=== PATIENT | male | born 1940 | race Caucasian/White ===

== ENCOUNTER 2016-12-30 08:54 | Inpatient (IN) | payer MEDICARE ==
[~2016-12-30] VITALS: Ht 170.2 cm; Wt 64.7 kg
--- NOTE | 2016-12-31 13:43 | NUR ---
1335- PT TAKEN TO OR FOR EGD AND COLONOSCOPY VIA HOSPITAL BED PER OR NURSE. NO S/S OF DISTRESS, NO COMPLAINTS.
[2017-01-03] MEDS ORDERED: PRINIVIL20 MG PO (09:33)
[2017-01-03] MEDS ORDERED: PRAVACHOL20 MG PO (09:33)
[2017-01-03] MEDS ORDERED: MEN'S ONE DAIL1 EACH PO (09:34)
[2017-01-03] MEDS ORDERED: SAW PALMETTO450 MG PO (09:35)
[2017-01-03] MEDS ORDERED: VITAMIN D31000 UNI1 PO (09:35)
[2017-01-03] MEDS ORDERED: FERROUS SULFAT325 MG PO (09:36)
[2017-01-03] MEDS ORDERED: ATIVAN0.5 MG PO ×2 (09:37→09:38)
== END 2017-01-01 11:46 | disposition home or self-care (01) | DRG 376 ==
LOC: LAB 08:54 → MED 11:14
PROVIDERS: ADMIT Internal Medicine
PROC: 30233N1 Transfusion of Nonautologous Red Blood Cells into Peripheral Vein, Percutaneous Approach (ICD-10-PCS; principal; 2016-12-30)
PROC: 0DJ08ZZ Inspection of Upper Intestinal Tract, Via Natural or Artificial Opening Endoscopic (ICD-10-PCS; 2016-12-31)
PROC: 0DBH8ZX Excision of Cecum, Via Natural or Artificial Opening Endoscopic, Diagnostic (ICD-10-PCS; 2016-12-31)
PROC: 30233N1 Transfusion of Nonautologous Red Blood Cells into Peripheral Vein, Percutaneous Approach (ICD-10-PCS; 2016-12-31)
DX: C18.0 Malignant neoplasm of cecum (principal); R01.1 Cardiac murmur, unspecified; D50.0 Iron deficiency anemia secondary to blood loss (chronic); E78.5 Hyperlipidemia, unspecified; E80.4 Gilbert syndrome; K44.9 Diaphragmatic hernia without obstruction or gangrene; K57.30 Diverticulosis of large intestine without perforation or abscess without bleeding; N40.0 Benign prostatic hyperplasia without lower urinary tract symptoms; M19.90 Unspecified osteoarthritis, unspecified site; Z79.899 Other long term (current) drug therapy; Z90.49 Acquired absence of other specified parts of digestive tract; Z80.9 Family history of malignant neoplasm, unspecified; Z83.3 Family history of diabetes mellitus; Z82.49 Family history of ischemic heart disease and other diseases of the circulatory system; I08.3 Combined rheumatic disorders of mitral, aortic and tricuspid valves
CPT/HCPCS: 93306; J2704; P9021; Q9963; Q9967

== ENCOUNTER 2017-01-06 08:48 | Inpatient (IN) | payer MEDICARE ==
[~2017-01-06] VITALS: Ht 170.2 cm; Wt 67.2 kg
[~2017-01-06 08:48] MED LIST: ATIVAN0.5 MG PO; FERROUS SULFAT325 MG PO; MEN'S ONE DAIL1 EACH PO; PRAVACHOL20 MG PO; PRINIVIL20 MG PO; SAW PALMETTO450 MG PO; VITAMIN D31000 UNI1 PO
--- NOTE | 2017-01-06 17:39 | NUR ---
1735-DR. ARMENDARIZ NOTIFIED OF LAB VALUES AND CONDITION. PT C/O NAUSEA. N/O'S FOR PHENERGAN 12.5MG IV. GIVEN AT THIS TIME
--- NOTE | 2017-01-07 10:18 | NUR ---
1000-DR. ARMENDARIZ HAS SEEN AND ASSESSED PT AT THIS TIME. UPDATED ON PT CONDITION. N/O'S TO D/C FC WELL O2. F/C D/C'D AND O2 DISCONTINUED. O2 SATS DROP TO 87-88% R/A WHEN SLEEPING AND 90-92% W/A. ENCOURAGED TO USE IS W/A. PT OBTAINS 500 ON IS. O2 REPLACED AT 2L NC AT THIS TIME WHILE PT NAPPING. SAT 93-94% 2L NC. 1020-MESSAGE LEFT AT MD OFFICE REPORTING DECREASED O2 SAT 1030-MD NOTIFIED OF DECREASED O2 SAT WHILE SLEEPING. ENCOURAGE IS. NO N/O'S
--- NOTE | 2017-01-07 19:58 | NUR ---
1999 PT IS ASKING FOR SLEEPING MEDS. EXPLAINED IT IS TOO EARLY FOR SLEEPING MEDS THAT HE WILL BE AWAKE AT 0300 A.M. BUT HE IS DETERMINED TO HAVE MEDS AT THIS TIME. RESTORIL AND ATIVAN PO GIVEN ORDERED. WILL MONITOR. DENIES PAIN AT THIS TIME.
--- NOTE | 2017-01-08 07:34 | NUR ---
0730 TRANSFERRED TO ROOM 307 VIA BED WITHOUT PROBLEMS. O2 CONT 2 L/M VIA N/C. AFTER REPORT GIVEN TO DAVE SHARMA.
--- NOTE | 2017-01-08 18:06 | NUR ---
1420- PT AMBULATED IN HALLS WITH NURSING STAFF AND WITHOUT DIFFICULTY.
--- NOTE | 2017-01-09 18:04 | NUR ---
AMBULATING IN ROOM AND HALLS TODAY WITH AT SIDE, NO DIFFICULTY.
--- NOTE | 2017-01-10 07:31 | NUR ---
PT GOT SLIGHTLY CONFUSED DURING THE MIDDLE OF THE NIGHT AND REMOVED GOWN AND DRESSING COVERING MIDLINE INCISION. I PLACED A NEW COVADERM ON HIS ABDOMEN TO PROTECT HIS INSICION. THE INCISION WAS PINK, CLOSED AND NO DRAINAGE OR ODOR NOTED.
== END 2017-01-10 17:10 | disposition home or self-care (01) | DRG 331 ==
LOC: SDC 08:48 → ICU 14:01 → MED 01-08 07:33
PROVIDERS: ADMIT Surgery
PROC: 0DTF0ZZ Resection of Right Large Intestine, Open Approach (ICD-10-PCS; principal; 2017-01-06)
DX: C18.0 Malignant neoplasm of cecum (principal); I10 Essential (primary) hypertension; R01.1 Cardiac murmur, unspecified; E80.4 Gilbert syndrome; I08.1 Rheumatic disorders of both mitral and tricuspid valves; Z79.899 Other long term (current) drug therapy; Z82.49 Family history of ischemic heart disease and other diseases of the circulatory system; Z82.5 Family history of asthma and other chronic lower respiratory diseases; Z80.7 Family history of other malignant neoplasms of lymphoid, hematopoietic and related tissues
CPT/HCPCS: J0360; J1885; J1940; J2550; J2704; P9047

== ENCOUNTER 2017-01-12 22:51 | Emergency (ER) | payer MEDICARE | END 2017-01-13 01:05 | disposition home or self-care (01) | LOC: ER 22:51 | DX: N43.3 Hydrocele, unspecified (principal); R60.0 Localized edema; I10 Essential (primary) hypertension; Z85.038 Personal history of other malignant neoplasm of large intestine; Z79.899 Other long term (current) drug therapy | CPT/HCPCS: 36415 ==

== ENCOUNTER 2017-01-20 18:30 | Emergency (ER) | payer MEDICARE | END 2017-01-20 21:01 | disposition home or self-care (01) | LOC: ER 18:30 | DX: R53.1 Weakness (principal); E78.5 Hyperlipidemia, unspecified; I10 Essential (primary) hypertension; Z79.899 Other long term (current) drug therapy; Z85.038 Personal history of other malignant neoplasm of large intestine | CPT/HCPCS: 36415 ==